=== PATIENT | female | born 1990 | race Caucasian/White ===

== ENCOUNTER 2021-12-07 12:46 | Inpatient (IN) | payer MEDICAID ==
[~2021-12-07] VITALS: Ht 144.8 cm; Wt 59.0 kg
[2021-12-07] MEDS ORDERED: CARBOPROST TROMETHAMINE 250 MCG/ML AMPUL IM PRN (14:15)
[2021-12-07] MEDS ORDERED: DEXT 5%/LACTATED RINGERS 1,000 ML IV SCH (14:15)
[2021-12-07] MEDS ORDERED: LIDOCAINE HCL 1% 30ML VIAL (10MG/ML) INFIL SCH (14:15)
[2021-12-07] MEDS ORDERED: RHO(D) IMMUNE GLOBULIN 300 MCG/SYR IM PRN ×2 (14:15→20:00)
[2021-12-07] MEDS ORDERED: DEXT 5%/LR + PITOCIN 20UNITS/L 1,000 ML IV SCH ×2 (14:15→20:00)
[2021-12-07] MEDS ORDERED: NALOXONE HCL 0.4 MG/ML 1ML VIAL IM PRN (14:15)
[2021-12-07] MEDS ORDERED: METHYLERGONOVINE MALEATE 0.2 MG/ML IM PRN (14:15)
[2021-12-07] MEDS ORDERED: BUTORPHANOL TARTRATE 2 MG/ML VIAL IV PRN (14:15)
[2021-12-07 14:32] LABS: BASOPHILS % 0.3 % (0.0-2.0); EOSINOPHILS % 0.1 % (0.0-5.0); HEMATOCRIT. 31.8 % (36.0-48.0); HEMOGLOBIN. 10.8 g/dL (12.0-16.0); LYMPHOCYTES % 11.4 % (20.0-50.0); MEAN CORPUSCULAR HEMOGLOBIN 28.6 pg (28.0-32.0); MEAN CORPUSCULAR VOLUME 84.6 fL (81.0-99.0); MEAN PLATELET VOLUME 9.3 fl (7.4-10.4); MONOCYTES % 2.9 % (2.0-8.0); NEUTROPHILS % 85.3 % (40.0-76.0); PLATELET 231 x1000/uL (130-400); RED BLOOD CELL COUNT 3.77 mill/uL (4.2-5.4)
[2021-12-07 14:37] LABS: CLARITY URINE CLEAR (CLEAR); COLOR URINE YELLOW (YELLOW); KETONES URINE 2+ (NEGATIVE); LEUKOCYTE ESTERASE URINE NEGATIVE (NEGATIVE); NITRITE URINE NEGATIVE (NEGATIVE); OCCULT BLOOD URINE NEGATIVE (NEGATIVE); PH URINE 6.5 (4.5-8.0); PROTEIN URINE NEGATIVE (NEGATIVE); SPECIFIC GRAVITY URINE 1.014 (1.005-1.030); UROBILINOGEN URINE 0.2 E.U./dL (0.2-1.0)
[2021-12-07 14:50] LABS: INR 0.9; PROTHROMBIN TIME 9.5 sec (9.6-11.0)
[2021-12-07] MEDS ORDERED: PENICILLIN G POTASSIUM 5 MMU in DEXT 5% WATER 100 ML IV NR (15:00)
[2021-12-07 15:09] LABS: HEPATITIS B SURFACE ANTIGEN NEGATIVE
[2021-12-07 17:03] LABS: *BARBITURATES SCREEN URINE NEGATIVE (NEGATIVE)
[2021-12-07 17:04] LABS: *BENZODIAZEPINES SCREEN URINE NEGATIVE (NEGATIVE); *COCAINE SCREEN URINE NEGATIVE (NEGATIVE); METHADONE URINE SCREEN NEGATIVE (NEGATIVE)
[2021-12-07 17:05] LABS: *AMPHETAMINES SCREEN URINE NEGATIVE (NEGATIVE); CANNABINOID URINE SCREEN NEGATIVE (NEGATIVE); OPIATES URINE SCREEN NEGATIVE (NEGATIVE); PHENCYCLIDINE URINE SCREEN NEGATIVE (NEGATIVE)
[2021-12-07] MEDS ORDERED: PENICILLIN G POTASSIUM 2.5 MMU in DEXTROSE 5% WATER 50 ML IV SCH (19:00)
[2021-12-07] MEDS ORDERED: HEMORRHOIDAL SUPP PR PRN (20:00)
[2021-12-07] MEDS ORDERED: BENZOCAINE/LANOLIN/ALOE VERA SPRAY TOP PRN (20:00)
[2021-12-07] MEDS ORDERED: GLYCERIN/WITCH HAZEL LEAF MEDICATED PAD TOP PRN (20:00)
[2021-12-07] MEDS ORDERED: ACETAMINOPHEN WITH CODEINE 300/30MG TABLET PO PRN (20:00)
[2021-12-07] MEDS ORDERED: IBUPROFEN 400MG TABLET PO PRN (20:00)
[2021-12-07] MEDS ORDERED: LANOLIN OINT 7GM TUBE TOP PRN (20:00)
[2021-12-07] MEDS ORDERED: BISACODYL 10MG SUPP PR PRN (20:00)
[2021-12-07] MEDS ORDERED: DIPHENHYDRAMINE 25MG CAPSULE PO PRN (20:00)
[2021-12-07] MEDS ORDERED: DOCUSATE SODIUM 100MG CAPSULE PO SCH (21:00)
[2021-12-07 21:20] VITALS: BP 96/66
[2021-12-07] MEDS: SIMETHICONE 80MG TABLET CHEW PO SCH (22:03)
[2021-12-07] MEDS: MAGNESIUM/ALUMINUM HYDROXIDE/SIMETHICONE 30ML UDC PO SCH (22:03)
[2021-12-08 04:00] VITALS: BP 90/50
[2021-12-08 05:51] LABS: BASOPHILS % 0.3 % (0.0-2.0); EOSINOPHILS % 0.1 % (0.0-5.0); HEMATOCRIT. 28.6 % (36.0-48.0); HEMOGLOBIN. 9.6 g/dL (12.0-16.0); LYMPHOCYTES % 11.4 % (20.0-50.0); MEAN CORPUSCULAR HEMOGLOBIN 28.3 pg (28.0-32.0); MEAN CORPUSCULAR VOLUME 84.4 fL (81.0-99.0); MEAN PLATELET VOLUME 9.2 fl (7.4-10.4); MONOCYTES % 4.3 % (2.0-8.0); NEUTROPHILS % 83.9 % (40.0-76.0); PLATELET 208 x1000/uL (130-400); RED BLOOD CELL COUNT 3.39 mill/uL (4.2-5.4); RED CELL DISTRIBUTION WIDTH 14.2 % (11.6-14.6)
[2021-12-08 08:00] VITALS: BP 101/62
[2021-12-08] MEDS: FERROUS SULFATE 325MG TABLET PO SCH ×3 (08:16→18:19)
[2021-12-08] MEDS: IBUPROFEN 800MG TABLET PO PRN (08:16)
[2021-12-08] MEDS: SIMETHICONE 80MG TABLET CHEW PO SCH ×3 (08:17→18:19)
[2021-12-08] MEDS: PRENATAL VIT/FE FUMARATE/FA TABLET PO SCH (08:17)
[2021-12-08] MEDS: MAGNESIUM/ALUMINUM HYDROXIDE/SIMETHICONE 30ML UDC PO SCH ×3 (08:17→18:19)
[2021-12-08 16:30] VITALS: BP 103/64
[2021-12-08 21:00] VITALS: BP 94/58
[2021-12-09 05:00] VITALS: BP 96/62
[2021-12-09 07:41] VITALS: BP 109/54
[2021-12-09] MEDS: MAGNESIUM/ALUMINUM HYDROXIDE/SIMETHICONE 30ML UDC PO SCH (08:19)
[2021-12-09] MEDS: PRENATAL VIT/FE FUMARATE/FA TABLET PO SCH (08:19)
[2021-12-09] MEDS: IBUPROFEN 800MG TABLET PO PRN (08:19)
[2021-12-09] MEDS: FERROUS SULFATE 325MG TABLET PO SCH (08:19)
[2021-12-09] MEDS: SIMETHICONE 80MG TABLET CHEW PO SCH (08:19)
== END 2021-12-09 11:00 | disposition home or self-care (01) | DRG 560 ==
LOC: 8 EST LDRP 12:46 → OBSVTOIN 12:46 → 8EST 21:32
PROVIDERS: ADMIT Obstetrics & Gynecology; ATTEND Obstetrics & Gynecology
PROC: 10E0XZZ Delivery of Products of Conception, External Approach (ICD-10-PCS; principal; 2021-12-07)
DX: O80 Encounter for full-term uncomplicated delivery (principal); Z37.0 Single live birth; Z20.822 Contact with and (suspected) exposure to COVID-19; Z3A.40 40 weeks gestation of pregnancy
CPT/HCPCS: 36415; 76805; 76818; 80305; 81003; 85025; 86592; 86703; 86762; 86850; 86900; 87340; 87426; 99281; J0595; J2540; J2590; J7060; J7121